=== PATIENT | male | born 1960 | race Caucasian/White ===

== ENCOUNTER → 2024-12-12 | Outpatient (CLI) | payer OTHER ==
[~2024-12-12] VITALS: Ht 168.9 cm; Wt 121.4 kg
[~2024-12-12] MED LIST: AREDS 2 FORMULA PO; BACL10TA PO; CARB-283 OP; CARV25TA PO; CETI10TA57 PO; DICL100G60 TP; FINA5TAB41 PO; FLUT15.845 NS; LOSA100T59 PO; MULT1CAP PO; PANT20TA18 PO; TADA5TAB PO; TAMS-55 PO; THYROID PO; [UNRECOGNIZED DRUG - OTHER] OU
--- NOTE | 2024-12-12 13:59 | EKG ---
[facility] Test Date: 2024-12-12 Test Time: 13:43:12 Pat Name: DUDLEY GOLDEN Department: Patient ID: [id number] Room: Gender: M [employer]: [id number] : 1960 Requested By: KYLIE LEE Order Number: [id number] Reading MD: Sammy Perez Measurements Intervals [place] Rate: 68 P: 8 SC: 170 QRS: 20 QRSD: 106 T: 41 QT: 410 QTc: 438 Interpretive Statements Sinus rhythm No previous ECG available for comparison Electronically Signed On 12-15-2024 19:47:51 CDT by Sammy Perez Please click the below link to view image of tracing.
[2024-12-12 14:05] LABS: IMMATURE GRANULOCYTE ABSOLUTE 0.03 K/uL (0-1); NUCLEATED RED BLOOD CELLS 0.0 % (0.0-0.19); PLATELET COUNT (AUTO) 227 K/uL (130-400); RED BLOOD CELL COUNT(AUTO) 4.93 MIL/uL (4.50-6.20); RED CELL DISTRIBUTION WIDTH 13.8 % (11.0-15.5); WHITE BLOOD COUNT (AUTO) 6.3 K/uL (4.8-10.8)
[2024-12-12 14:33] LABS: CREATININE 0.8 mg/dL (0.5-1.3); GLOMERULAR FILTR. RATE CALC 99.0 mL/min (>90); GLUCOSE,RANDOM 103.0 mg/dL (70-105); SODIUM SERUM 134.0 mmol/L (136-145); UREA NITROGEN, BLOOD 14.0 mg/dL (7-18)
[2024-12-12 14:43] VITALS: BP 98/64; PULSE 72; RESP 16; TEMP 97.3
== END | disposition home or self-care (01) ==
LOC: EDSTATUS 13:00 → DAH 13:10
PROVIDERS: ATTEND Surgery
DX: E66.01 Morbid (severe) obesity due to excess calories (principal)
CPT/HCPCS: 86900; 80048; 85025; 86850; 86901; 36415; 93005; A6260